=== PATIENT | male | born 1980 | race African-American/Black ===

== ENCOUNTER 2023-10-19 20:00 | Inpatient (IN) | payer MEDICAID, OTHER ==
[~2023-10-19] VITALS: Ht 175.3 cm; Wt 97.5 kg
[2023-10-19] MEDS: ASPIRIN 81MG TABLET PO ONE (21:08)
[2023-10-19] MEDS: NITROGLYCERIN 0.4MG TABLET SL SL ONE (21:08)
[2023-10-19] MEDS: SODIUM CHLORIDE 0.9% 1,000 ML IV ONE (21:08)
[2023-10-19 22:20] LABS: CHLORIDE 97 mEq/L (98-107); POTASSIUM 4.8 mEq/L (3.5-5.1); SODIUM 129 mEq/L (136-145)
[2023-10-19 22:21] LABS: CARBON DIOXIDE 23 mEq/L (21-32)
[2023-10-19 22:22] LABS: CALCIUM 9.5 mg/dL (8.7-10.4)
[2023-10-19 22:23] LABS: HEMATOCRIT. 33.6 % (42.0-52.0); HEMOGLOBIN. 11.2 g/dL (14.0-18.0); MEAN CORPUSCULAR HEMOGLOBIN 25.3 pg (28.0-32.0); MEAN CORPUSCULAR HGB CONC 33.5 g/dL (31.0-37.0); MEAN CORPUSCULAR VOLUME 75.4 fL (80.0-94.0); PLATELET 298 x1000/uL (130-400); RED BLOOD CELL COUNT 4.45 mill/uL (4.7-6.1); WHITE BLOOD COUNT 6.9 x1000/uL (4.5-11.0)
[2023-10-19 22:24] LABS: BASOPHILS % 2.4 % (0.0-2.0); LYMPHOCYTES % 30.7 % (20.0-50.0); MEAN PLATELET VOLUME 8.4 fl (7.4-10.4); MONOCYTES % 12.4 % (2.0-8.0); NEUTROPHILS % 51.5 % (40.0-76.0)
[2023-10-19 22:27] LABS: CREATININE 1.5 mg/dL (0.6-1.3); GLUCOSE 107 mg/dL (70-105); UREA NITROGEN BLOOD 16 mg/dL (9-23)
[2023-10-19 22:29] LABS: TROPONIN I HIGH SENSITIVITY 20 ng/L (3.0-53)
[2023-10-20 02:38] LABS: TROPONIN I HIGH SENSITIVITY 22 ng/L (3.0-53)
[2023-10-20 03:20] LABS: PROTHROMBIN TIME 11.2 sec (9.6-11.0)
[2023-10-20 11:15] VITALS: BP 133/71; PULSE 88; RESP 18; TEMP 36.33624; O2SAT 100
[2023-10-20 11:16] VITALS: BP 133/71; PULSE 88; RESP 18; TEMP 36.3624
[2023-10-20] MEDS ORDERED: CARV12.545 PO (11:36)
[2023-10-20] MEDS ORDERED: METF-414 PO (11:36)
[2023-10-20] MEDS ORDERED: AMLO10TA80 PO (11:36)
[2023-10-20] MEDS ORDERED: FERR325T6 PO (11:36)
[2023-10-20] MEDS ORDERED: LISI40TA13 PO (11:37)
[2023-10-20] MEDS ORDERED: CLOP-31 PO (11:37)
[2023-10-20] MEDS ORDERED: MINO10TA PO (11:37)
[2023-10-20] MEDS ORDERED: ALBU90AE IH (11:37)
[2023-10-20] MEDS ORDERED: ATOR-2 PO (11:37)
[2023-10-20] MEDS ORDERED: HYDR25TA PO (11:37)
[2023-10-20] MEDS ORDERED: MONT-39 PO (11:37)
[2023-10-20] MEDS ORDERED: DEXTROSE 50% WATER 50ML SYRINGE IV PRN (14:15)
[2023-10-20] MEDS: AMLODIPINE 10MG TABLET PO SCH (14:17)
[2023-10-20] MEDS: LISINOPRIL 40MG TABLET PO SCH (14:17)
[2023-10-20] MEDS: CLOPIDOGREL 75MG TABLET PO SCH (14:17)
[2023-10-20 16:00] VITALS: BP 150/69; PULSE 86; RESP 19; TEMP 36.78072; O2SAT 96; O2SAT 97
[2023-10-20] MEDS: BLOOD SUGAR DIAGNOSTIC STRIP TEST SCH (17:03)
[2023-10-20] MEDS: INSULIN LISPRO 100 UNITS/ML SUBCUT SCH (17:07)
[2023-10-20] MEDS: MONTELUKAST SODIUM 10MG TABLET PO SCH (17:11)
[2023-10-20 20:00] VITALS: BP 132/66; PULSE 83; RESP 20; TEMP 36.89184; O2SAT 98
[2023-10-20 21:58] LABS: TROPONIN I HIGH SENSITIVITY 22 ng/L (3.0-53)
[2023-10-20] MEDS: CARVEDILOL 12.5MG TABLET PO SCH (22:10)
[2023-10-20] MEDS: ATORVASTATIN CALCIUM 40MG TABLET PO SCH (22:10)
[2023-10-21] VITALS: BP 141/65; PULSE 79; RESP 20; TEMP 36.3918; O2SAT 97
[2023-10-21 04:00] VITALS: BP 138/81; PULSE 68; RESP 20; TEMP 36.61404; O2SAT 100
[2023-10-21 08:00] VITALS: BP 141/71; PULSE 69; RESP 17; TEMP 36.55848; O2SAT 98
[2023-10-21 12:00] VITALS: BP 140/77; PULSE 70; RESP 15; TEMP 36.6696; O2SAT 99
[2023-10-21 16:00] VITALS: BP 150/68; PULSE 76; RESP 16; TEMP 36.44736; O2SAT 99
[2023-10-21 16:14] LABS: BASOPHILS % 1.7 % (0.0-2.0); DIFFERENTIAL COMMENT 0; EOSINOPHILS % 1.6 % (0.0-5.0); HEMATOCRIT. 32.9 % (42.0-52.0); HEMOGLOBIN. 10.9 g/dL (14.0-18.0); MEAN CORPUSCULAR HEMOGLOBIN 24.9 pg (28.0-32.0); MEAN CORPUSCULAR VOLUME 75.5 fL (80.0-94.0); MEAN PLATELET VOLUME 8.3 fl (7.4-10.4); MONOCYTES % 12.1 % (2.0-8.0); NEUTROPHILS % 57.6 % (40.0-76.0); PLATELET 283 x1000/uL (130-400); RED BLOOD CELL COUNT 4.36 mill/uL (4.7-6.1); RED CELL DISTRIBUTION WIDTH 13.7 % (11.6-14.6); WHITE BLOOD COUNT 5.7 x1000/uL (4.5-11.0)
[2023-10-21 16:29] LABS: CHLORIDE 102 mEq/L (98-107); POTASSIUM 4.2 mEq/L (3.5-5.1); SODIUM 136 mEq/L (136-145)
[2023-10-21 16:30] LABS: CALCIUM 9.7 mg/dL (8.7-10.4); CARBON DIOXIDE 28 mEq/L (21-32)
[2023-10-21 16:35] LABS: CREATININE 1.3 mg/dL (0.6-1.3); GLUCOSE 110 mg/dL (70-105); UREA NITROGEN BLOOD 9 mg/dL (9-23)
[2023-10-21 16:40] LABS: T4 FREE 1.29 ng/dL (0.89-1.76); THYROID STIMULATING HORMONE 1.47 uIU/mL (0.55-4.78)
[2023-10-21 20:00] VITALS: BP 138/62; PULSE 75; RESP 18; TEMP 36.72516; O2SAT 99
[2023-10-22] VITALS: BP 140/75; PULSE 72; RESP 18; TEMP 36.6696; O2SAT 99
[2023-10-22 04:00] VITALS: BP 142/65; PULSE 78; RESP 18; TEMP 36.55848; O2SAT 99
[2023-10-22 08:00] VITALS: BP 158/80; PULSE 63; RESP 18; TEMP 37.44744; O2SAT 100
[2023-10-22 12:00] VITALS: BP 143/78; PULSE 61; RESP 19; TEMP 37.61412; O2SAT 96
[2023-10-22 16:00] VITALS: BP 166/72; PULSE 66; RESP 18; TEMP 36.61404; O2SAT 96
[2023-10-22] MEDS: CLONIDINE 0.1MG TABLET PO PRN (18:27)
[2023-10-22 20:00] VITALS: BP 160/85; PULSE 66; RESP 18; TEMP 36.50292; O2SAT 96
[2023-10-23] VITALS (7 sets, daily range): BP systolic 115–185; BP diastolic 72–95; PULSE 61–80; RESP 16–18; TEMP 36.78072–37.66968; O2SAT 98–100
[2023-10-23] MEDS: CLONIDINE 0.1MG TABLET PO NR (14:50)
[2023-10-23] MEDS: FUROSEMIDE 40MG/4ML VIAL IVP SCH (15:01)
[2023-10-23 17:28] LABS: BASOPHILS % 1.5 % (0.0-2.0); DIFFERENTIAL COMMENT 0; HEMATOCRIT. 36.4 % (42.0-52.0); HEMOGLOBIN. 11.9 g/dL (14.0-18.0); LYMPHOCYTES % 32.4 % (20.0-50.0); MEAN CORPUSCULAR HEMOGLOBIN 24.9 pg (28.0-32.0); MEAN CORPUSCULAR HGB CONC 32.7 g/dL (31.0-37.0); MEAN CORPUSCULAR VOLUME 76.2 fL (80.0-94.0); MEAN PLATELET VOLUME 8.3 fl (7.4-10.4); MONOCYTES % 12.9 % (2.0-8.0); NEUTROPHILS % 51.2 % (40.0-76.0); PLATELET 315 x1000/uL (130-400); RED BLOOD CELL COUNT 4.77 mill/uL (4.7-6.1); WHITE BLOOD COUNT 5.4 x1000/uL (4.5-11.0)
[2023-10-23 17:30] LABS: CHLORIDE 102 mEq/L (98-107); POTASSIUM 4.2 mEq/L (3.5-5.1); SODIUM 138 mEq/L (136-145)
[2023-10-23 17:32] LABS: CALCIUM 10.1 mg/dL (8.7-10.4); CARBON DIOXIDE 29 mEq/L (21-32)
[2023-10-23 17:37] LABS: CREATININE 1.4 mg/dL (0.6-1.3); GLUCOSE 119 mg/dL (70-105); UREA NITROGEN BLOOD 9 mg/dL (9-23)
[2023-10-23] MEDS: CLONIDINE 0.1MG TABLET PO SCH (21:30)
[2023-10-24] VITALS (11 sets, daily range): BP systolic 137–183; BP diastolic 74–98; PULSE 57–68; RESP 16–20; TEMP 36.44736–36.9474; O2SAT 99–100
[2023-10-24 05:43] LABS: CALCIUM 9.5 mg/dL (8.7-10.4); CARBON DIOXIDE 27 mEq/L (21-32); CHLORIDE 99 mEq/L (98-107); POTASSIUM 3.1 mEq/L (3.5-5.1); SODIUM 134 mEq/L (136-145)
[2023-10-24 05:49] LABS: CREATININE 1.4 mg/dL (0.6-1.3); GLUCOSE 93 mg/dL (70-105); UREA NITROGEN BLOOD 10 mg/dL (9-23)
[2023-10-24 06:42] LABS: BASOPHILS % 1.6 % (0.0-2.0); DIFFERENTIAL COMMENT 0; EOSINOPHILS % 2.5 % (0.0-5.0); HEMATOCRIT. 31.1 % (42.0-52.0); HEMOGLOBIN. 10.3 g/dL (14.0-18.0); MEAN CORPUSCULAR HEMOGLOBIN 24.9 pg (28.0-32.0); MEAN CORPUSCULAR HGB CONC 33.1 g/dL (31.0-37.0); MEAN CORPUSCULAR VOLUME 75.4 fL (80.0-94.0); MEAN PLATELET VOLUME 8.5 fl (7.4-10.4); MONOCYTES % 14.4 % (2.0-8.0); NEUTROPHILS % 42.5 % (40.0-76.0); PLATELET 272 x1000/uL (130-400); RED BLOOD CELL COUNT 4.12 mill/uL (4.7-6.1); RED CELL DISTRIBUTION WIDTH 14.1 % (11.6-14.6); WHITE BLOOD COUNT 5.9 x1000/uL (4.5-11.0)
[2023-10-24] MEDS: POTASSIUM CHLORIDE 20MEQ TABLET SR PO SCH (10:10)
[2023-10-25] VITALS (8 sets, daily range): BP systolic 139–173; BP diastolic 70–88; PULSE 53–76; RESP 16–19; TEMP 36.22512–36.78072; O2SAT 97–100
[2023-10-25 07:20] LABS: BASOPHILS % 1.5 % (0.0-2.0); CHLORIDE 100 mEq/L (98-107); DIFFERENTIAL COMMENT 0; HEMATOCRIT. 34.8 % (42.0-52.0); HEMOGLOBIN. 11.4 g/dL (14.0-18.0); LYMPHOCYTES % 43.6 % (20.0-50.0); MEAN CORPUSCULAR HEMOGLOBIN 24.8 pg (28.0-32.0); MEAN CORPUSCULAR HGB CONC 32.7 g/dL (31.0-37.0); MEAN CORPUSCULAR VOLUME 75.7 fL (80.0-94.0); MEAN PLATELET VOLUME 8.4 fl (7.4-10.4); MONOCYTES % 12.1 % (2.0-8.0); NEUTROPHILS % 39.8 % (40.0-76.0); PLATELET 311 x1000/uL (130-400); POTASSIUM 3.2 mEq/L (3.5-5.1); RED CELL DISTRIBUTION WIDTH 14.1 % (11.6-14.6); SODIUM 135 mEq/L (136-145)
[2023-10-25 07:21] LABS: CALCIUM 9.8 mg/dL (8.7-10.4); CARBON DIOXIDE 26 mEq/L (21-32)
[2023-10-25 07:25] LABS: CREATININE 1.4 mg/dL (0.6-1.3)
[2023-10-25 07:26] LABS: GLUCOSE 89 mg/dL (70-105); UREA NITROGEN BLOOD 13 mg/dL (9-23)
[2023-10-25] MEDS ORDERED: POTASSIUM CHLORIDE 20MEQ TABLET SR PO NR (07:30)
[2023-10-25] MEDS: FUROSEMIDE 40MG TABLET PO SCH (09:30)
[2023-10-25] MEDS: POTASSIUM CHLORIDE 20MEQ TABLET SR PO SCH (09:32)
[2023-10-25] MEDS ORDERED: AMLO10TA80 PO (16:27)
[2023-10-25] MEDS ORDERED: FURO40TA5 PO (16:27)
[2023-10-25] MEDS ORDERED: CLOP-31 PO (16:27)
[2023-10-25] MEDS ORDERED: LIP40 PO (16:27)
[2023-10-25] MEDS ORDERED: CLON0.1T PO (16:27)
[2023-10-25] MEDS ORDERED: LISI40TA13 PO (16:27)
== END 2023-10-25 18:55 | disposition home or self-care (01) | DRG 207 ==
LOC: ER 20:00 → EDBEDREQ 10-20 07:08 → 5WST 10-20 08:14 → 7EST 10-20 12:07
PROVIDERS: ADMIT Internal Medicine; ATTEND Internal Medicine
DX: I31.39 Other pericardial effusion (noninflammatory) (principal); I42.9 Cardiomyopathy, unspecified; E11.22 Type 2 diabetes mellitus with diabetic chronic kidney disease; I13.0 Hypertensive heart and chronic kidney disease with heart failure and stage 1 through stage 4 chronic kidney disease, or unspecified chronic kidney disease; I50.9 Heart failure, unspecified; D64.9 Anemia, unspecified; E78.5 Hyperlipidemia, unspecified; E87.6 Hypokalemia; F10.10 Alcohol abuse, uncomplicated; N18.9 Chronic kidney disease, unspecified; R42 Dizziness and giddiness; Y90.9 Presence of alcohol in blood, level not specified; F17.210 Nicotine dependence, cigarettes, uncomplicated; F12.90 Cannabis use, unspecified, uncomplicated; Z79.82 Long term (current) use of aspirin; Z79.899 Other long term (current) drug therapy; Z86.73 Personal history of transient ischemic attack (TIA), and cerebral infarction without residual deficits
CPT/HCPCS: 36415; 71045; 80048; 80061; 82962; 83036; 83880; 84439; 84443; 84484; 85025; 93005; 93306; 93970; 99285; J1940; J7030

== ENCOUNTER 2024-09-28 16:36 | Emergency (ER) | payer MEDICAID ==
[~2024-09-28] VITALS: Ht 175.3 cm; Wt 76.0 kg
[~2024-09-28 16:36] MED LIST: ALBU90AE IH; AMLO10TA80 PO; ATOR-2 PO; CARV12.545 PO; CLON0.1T PO; CLOP-31 PO; FERR325T6 PO; FURO40TA5 PO; LIP40 PO; LISI40TA13 PO; METF-414 PO
[2024-09-28 16:39] VITALS: O2SAT 100
[2024-09-28 17:45] LABS: BASOPHILS % 0.5 % (0.0-2.0); EOSINOPHILS % 4.0 % (0.0-5.0); HEMATOCRIT. 35.3 % (42.0-52.0); HEMOGLOBIN. 11.7 g/dL (14.0-18.0); LYMPHOCYTES % 26.7 % (20.0-50.0); MEAN PLATELET VOLUME 8.3 fl (7.4-10.4); MONOCYTES % 9.0 % (2.0-8.0); NEUTROPHILS % 59.8 % (40.0-76.0); PLATELET 229 x1000/uL (130-400); RED BLOOD CELL COUNT 4.56 mill/uL (4.7-6.1); RED CELL DISTRIBUTION WIDTH 16.7 % (11.6-14.6)
[2024-09-28] MEDS: HYDROCODONE/ACETAMINOPHEN 5/325MG TABLET PO ONE (17:54)
[2024-09-28 17:55] LABS: INR 1.0
[2024-09-28 17:59] LABS: CREATININE 1.3 mg/dL (0.6-1.3); UREA NITROGEN BLOOD 11 mg/dL (9-23)
[2024-09-28 18:01] LABS: TROPONIN I HIGH SENSITIVITY 12 ng/L (3.0-53)
[2024-09-28] MEDS: ACETAMINOPHEN 500MG TABLET PO SCH (18:41)
[2024-09-28 21:15] LABS: TROPONIN I HIGH SENSITIVITY 13 ng/L (3.0-53)
[2024-09-28 21:45] VITALS: BP 162/79; PULSE 67; RESP 15; TEMP 37; O2SAT 100
== END 2024-09-28 21:47 | disposition home or self-care (01) ==
LOC: ER 16:50
DX: R07.89 Other chest pain (principal); E11.9 Type 2 diabetes mellitus without complications; I10 Essential (primary) hypertension; Z79.02 Long term (current) use of antithrombotics/antiplatelets; Z79.899 Other long term (current) drug therapy; Z86.73 Personal history of transient ischemic attack (TIA), and cerebral infarction without residual deficits
CPT/HCPCS: 36415; 71045; 80048; 84484; 85025; 93005; 99285